=== PATIENT | male | born 1980 | race Caucasian/White ===

== ENCOUNTER 2019-10-09 17:52 | Emergency (ER) | payer OTHER ==
[2019-10-09 18:55] VITALS: BP 137/94
[2019-10-09] MEDS ORDERED: DOXYcycline CAP(*) 100 MG PO ONE ×2 (19:45)
[2019-10-09] MEDS ORDERED: Ibuprofen TAB* 600 MG PO ONE (19:45)
--- NOTE | 2019-10-09 19:48 | UC ---
Skin Complaint HPI - HPI Summary HPI Summary: 39-year-old male comes in with chief complaint of right lower back pain. Days ago he noticed an area on his skin that was irritated its gradually gotten bigger and more painful. No fevers or chills. Area is red and does hurt more when he moves or puts pressure on it. No known history of MRSA. - History of Current Complaint Chief Complaint: UCBiteInjury Time Seen by Provider: 10/09/19 19:20 Stated Complaint: SKIN ISSUE BACK Pain Intensity: 4 - Allergy/Home Medications Allergies/Adverse Reactions: Allergies Allergy/AdvReac Type Severity Reaction Status Date / Time sulfamethoxazole AdvReac Unknown Verified 10/09/19 18:55 [From Bactrim] Reaction Details trimethoprim [From Bactrim] AdvReac Unknown Verified 10/09/19 18:55 Reaction Details Home Medications: Home Medications DOXYcycline CAP(*) [DOXYcycline 100MG CAP(*)] 100 mg PO BID #18 cap 10/09/19 [Rx ] PMH/Surg Hx/FS Hx/Imm Hx Previously Healthy: Yes - Family History Known Family History: Positive: Non-Contributory - Social History Alcohol Use: Rare Substance Use Type: None Smoking Status (MU): Heavy Every Day Tobacco Smoker Review of Systems All Other Systems Reviewed And Are Negative: Yes Constitutional: Positive: Negative Skin: Positive: Other - SEE HPI Eyes: Positive: Negative ENT: Positive: Negative Respiratory: Positive: Negative Cardiovascular: Positive: Negative Gastrointestinal: Positive: Negative Motor: Positive: Negative Neurovascular: Positive: Negative Musculoskeletal: Positive: Negative Neurological/Mental Status: Positive: Negative Psychological: Positive: Negative Is Patient Immunocompromised?: No Physical Exam Triage Information Reviewed: Yes Appearance: Well-Appearing, Well-Nourished, Pain Distress - MILD WITH MOVEMENT AND PALPATION OF INFECTED AREA RT LOW BACK Vital Signs: Initial Vital Signs Temp 98.4 F 10/09/19 18:52 Pulse 81 10/09/19 18:52 Resp 18 10/09/19 18:52 BP 137/94 10/09/19 18:52 Pulse Ox 99 10/09/19 18:52 Vital Signs Reviewed: Yes Eye Exam: Normal Eyes: Positive: Conjunctiva Clear Neck: Positive: Supple Respiratory: Positive: No respiratory distress Musculoskeletal: Positive: Strength Intact, ROM Intact Neurological: Positive: Alert Psychological: Positive: Age Appropriate Behavior Skin: Positive: Other - 10 cm erythematous area in diameter right posterior low back. There is a hamilton in the middle of it with mild fluctuance. I was able to unroof the hamilton and express pus I sent a wound culture. Course/Dx - Course Course Of Treatment: Going to treat with doxycycline. If the patient does not improve or worsens he is to get reevaluated. - Diagnoses Provider Diagnosis: Abscess, Cellulitis of lower back Discharge ED - Sign-Out/Discharge Documenting (check all that apply): Patient Departure All imaging exams completed and their final reports reviewed: No Studies - Discharge Plan Condition: Stable Disposition: HOME Prescriptions: DOXYcycline CAP(*) [DOXYcycline 100MG CAP(*)] 100 mg PO BID #18 cap Patient Education Materials: Cellulitis (ED), Abscess (ED) Referrals: Glen Soto MD [Primary Care Provider] - Additional Instructions: FOLLOW UP WITH YOUR DOCTOR IF NOT COMPLETELY IMPROVED. GET REEVALUATED SOONER IF NOT IMPROVED OR WORSE; FEVER, YOU FEEL ILL, SPREAD OF INFECTION OR ANY QUESTIONS OR CONCERNS. - Billing Disposition and Condition Condition: STABLE Disposition: Home
--- NOTE | 2019-10-10 14:25 | UC ---
- Progress Note Progress Note: Please advise that the cause of his infection is Staph aureus. He should be responding to the use of doxycycline, and should follow up with his PMD if he is having ongoing problems. Course/Dx - Diagnoses Provider Diagnoses: Abscess, Cellulitis of lower back Discharge ED - Sign-Out/Discharge Documenting (check all that apply): Post-Discharge Follow Up All imaging exams completed and their final reports reviewed: No Studies - Discharge Plan Condition: Stable Disposition: HOME Prescriptions: DOXYcycline CAP(*) [DOXYcycline 100MG CAP(*)] 100 mg PO BID #18 cap Patient Education Materials: Cellulitis (ED), Abscess (ED) Referrals: Glen Soto MD [Primary Care Provider] - Additional Instructions: FOLLOW UP WITH YOUR DOCTOR IF NOT COMPLETELY IMPROVED. GET REEVALUATED SOONER IF NOT IMPROVED OR WORSE; FEVER, YOU FEEL ILL, SPREAD OF INFECTION OR ANY QUESTIONS OR CONCERNS. - Billing Disposition and Condition Condition: STABLE Disposition: Home
== END 2019-10-09 19:56 | disposition home or self-care (01) ==
LOC: UCCORT 17:52
DX: L03.312 Cellulitis of back [any part except buttock and flank] (principal); L02.212 Cutaneous abscess of back [any part, except buttock and flank]; F17.200 Nicotine dependence, unspecified, uncomplicated; Z88.2 Allergy status to sulfonamides
CPT/HCPCS: 87070; 87205; 87640; 87641; 99203; A9270-GY; G0463